=== PATIENT | female | born 1950 | race Caucasian/White ===

== ENCOUNTER 2018-01-10 08:01 | Emergency (ER) | payer OTHER ==
[~2018-01-10] VITALS: Ht 152.4 cm; Wt 54.4 kg
[~2018-01-10 08:01] MED LIST: GLIPIZIDE10 MG; METFORMIN HCL1000 MG; METFORMIN HCL500 MG; MILLIPRED DP5 MG PO; NABUMETONE750 MG PO
[2018-01-10] MEDS ORDERED: COZAAR50 MG (08:10)
[2018-01-10] MEDS ORDERED: LIPITOR20 MG (08:10)
[2018-01-10] MEDS ORDERED: AUBAGIO7 MG (08:10)
== END 2018-01-10 10:02 | disposition home or self-care (01) ==
LOC: ER 08:01
DX: J06.9 Acute upper respiratory infection, unspecified (principal); J11.1 Influenza due to unidentified influenza virus with other respiratory manifestations

== ENCOUNTER 2022-02-07 10:15 | Inpatient (IN) | payer OTHER ==
[~2022-02-07] VITALS: Ht 152.4 cm; Wt 43.1 kg
[~2022-02-07 10:15] MED LIST changes: +AUBAGIO7 MG; +COZAAR50 MG; +LIPITOR20 MG
== END 2022-02-28 16:03 | disposition home or self-care (01) | DRG 177 ==
LOC: ER 10:15 → ICU-2 20:19 → MEDJ 20:19 → ICU-2 02-08 00:50 → MEDJ 02-09 10:35
PROVIDERS: ADMIT Specialist; ATTEND Specialist
PROC: BF37YZZ Magnetic Resonance Imaging (MRI) of Pancreas using Other Contrast (ICD-10-PCS; 2022-02-14)
PROC: 4A12X4Z Monitoring of Cardiac Electrical Activity, External Approach (ICD-10-PCS; 2022-02-20)
PROC: 0FC98ZZ Extirpation of Matter from Common Bile Duct, Via Natural or Artificial Opening Endoscopic (ICD-10-PCS; principal; 2022-02-26)
DX: U07.1 COVID-19 (principal); K85.90 Acute pancreatitis without necrosis or infection, unspecified; K80.12 Calculus of gallbladder with acute and chronic cholecystitis without obstruction; N17.8 Other acute kidney failure; Z95.1 Presence of aortocoronary bypass graft; E11.9 Type 2 diabetes mellitus without complications; Z79.4 Long term (current) use of insulin; I10 Essential (primary) hypertension; I48.0 Paroxysmal atrial fibrillation; G35 Multiple sclerosis; Z20.822 Contact with and (suspected) exposure to COVID-19; I25.10 Atherosclerotic heart disease of native coronary artery without angina pectoris
CPT/HCPCS: 74182

== ENCOUNTER 2025-05-03 12:57 | Inpatient (IN) | payer OTHER ==
[~2025-05-03] VITALS: Ht 152.4 cm; Wt 52.2 kg
[~2025-05-03 12:57] MED LIST changes: +ELIQUIS5 MG PO
[2025-05-03] MEDS ORDERED: METOPROLOL SUCC25 MG (13:44)
[2025-05-03] MEDS ORDERED: GLIMEPIRIDE2 M1 (13:44)
[2025-05-03] MEDS ORDERED: ADULT LOW DOSE81 M1 (13:44)
[2025-05-03] MEDS ORDERED: ZESTRIL2.5 MG (13:44)
--- NOTE | 2025-05-03 13:45 | NUR ---
PTE ALERTA Y ORIENTADO X3 REFIERE TENER [facility], MAREOS Y ASTHMA DEDSE EL JUEVES . SE SIMON SV MAS SE UBICA.
[2025-05-03] MEDS ORDERED: METHYLPREDNISOLONE SOD SUCC 125 MG VIAL IV ONE (14:00)
[2025-05-03] MEDS ORDERED: AZITHROMYCIN 500 MG VIAL IV ONE (14:00)
[2025-05-03] MEDS ORDERED: CEFTRIAXONE SODIUM 1,000 MG VIAL IV ONE (14:00)
[2025-05-03] MEDS ORDERED: LEVALBUTEROL HCL 1.25 MG/3 ML SOLUTION IH SCH ×2 (14:00→18:53)
--- NOTE | 2025-05-03 14:49 | NUR ---
SE REALIZA LAB Y SE ADMINISTRA TX KARRIE ORDEN MEDICA BAJO MEDIDAS ASEPTICAS. SE ORIENTA PTE QUIEN REFIERE ENTENDER Y ACEPTAR.
[2025-05-03 14:53] LABS: BASO % 0.4 % (0.1-1.2); EOS # 0.00 (0.04-0.54); EOS % 0.0 % (0.7-7.0); LYMPH # 1.67 (1.18-3.74); LYMPH % 35.7 % (19.3-53.1); MEAN PLATELET VOLUME 10.80 fl (9.4-12.4); MONO # 0.50 (0.24-0.82); MONO % 10.7 % (4.7-12.5); NEUT # 2.48 (1.56-6.13); NEUT % 53.0 % (34.0-71.1); RED CELL DISTRIBUTION WIDTH 13.8 % (11.6-14.4)
[2025-05-03 15:51] LABS: ALT/SGPT 34.0 U/L (12-78); AST/SGOT 42.0 U/L (15-37); BILIRUBIN TOTAL 0.71 mg/dL (0.3-1.2); BUN CREA RATIO 21.0 (7.0-25.0); CREATININE SERUM 1.18 mg/dL (0.55-1.02); GFR 44.77; GLOBULINA 4.1 G/DL (2.4-3.5); GLUCOSE FASTING 126.0 mg/dL (65-100); OSMOLALITY SERUM 295.0 MOSM/KG (275-295)
[2025-05-03 15:59] LABS: COVID-19 AG NEGATIVE (NEGATIVE)
[2025-05-03] MEDS ORDERED: GUAIFEN/DEXTROMETHORPHAN/PE 10 ML BLIST.PACK PO SCH (18:53)
[2025-05-03] MEDS ORDERED: levoFLOXacin IN DEXTROSE 5 % 150 ML IV SCH (18:53)
[2025-05-03] MEDS ORDERED: METHYLPREDNISOLONE SOD SUCC 40 MG VIAL IV SCH (18:53)
[2025-05-03] MEDS ORDERED: IPRATROPIUM BROMIDE 0.5 MG/2.5 ML AMPUL.NEB IH SCH (18:53)
[2025-05-03] MEDS ORDERED: ENALAPRILAT DIHYDRATE 1.25 MG/ML VIAL IV PRN (19:00)
[2025-05-03] MEDS ORDERED: 0.9 % SODIUM CHLORIDE 1,000 ML IV SCH (19:00)
[2025-05-03] MEDS ORDERED: ACETAMINOPHEN 500 MG GEL..CAP PO PRN (19:00)
[2025-05-03 19:18] LABS: ABG PH 7.465 (7.35-7.45); ABG PO2 100.2 mmHg (80-100); BICARBONATE 22.3 mmol/l (23-25)
[2025-05-03 19:19] LABS: o2 21 %
[2025-05-03 20:09] VITALS: BP 160/64; O2SAT 98
[2025-05-03 20:13] LABS: INR 1.0
[2025-05-03 21:37] LABS: URINE APPEARANCE Clear; URINE BILIRRUBIN Negative (NEGATIVE); URINE BLOOD Negative; URINE COLOR Dark Yellow; URINE GLUCOSE Negative (NEGATIVE); URINE KETONE Trace (NEGATIVE); URINE LEUKOCYTE Trace; URINE NITRATE Negative; URINE UROBILINOGEN 1.0 E.U./dl
[2025-05-03 21:40] LABS: URINE BACTERIA 340.7 uL (0.0-1933); URINE EPITHELIAL CELLS 26.5 uL (0.0-38.8); URINE RBC 23.9 uL (0.0-20.8); URINE WBC 13.2 uL (0.0-23.2)
[2025-05-03 21:50] LABS: URINE CAST 0.14 uL (0.0-1.40); URINE PROTEIN 100 (NEGATIVE)
[2025-05-04] MEDS ORDERED: GUAIFEN/DEXTROMETHORPHAN/PE 10 ML BLIST.PACK PO ONE (01:53)
[2025-05-04 03:40] VITALS: BP 138/73; O2SAT 95
[2025-05-04] MEDS ORDERED: INSULIN LISPRO 1,000 UNIT/10 ML UNITS SUBCUTANEO PRN (06:30)
[2025-05-04] MEDS ORDERED: DEXTROSE 50 % IN WATER 0.5 G/ML VIAL IV PRN (06:30)
[2025-05-04 08:42] VITALS: BP 155/77; O2SAT 97
[2025-05-04] MEDS ORDERED: ENOXAPARIN SODIUM 40 MG/0.4 ML SYRINGE SUBCUTANEO SCH (09:00)
[2025-05-04] MEDS ORDERED: METOPROLOL SUCCINATE 25 MG TAB.SR.24H PO SCH (09:00)
[2025-05-04] MEDS ORDERED: INSULIN GLARGINE,HUM.REC.ANLOG 1,000 UNITS/10 ML UNITS SUBCUTANEO SCH (09:00)
[2025-05-04] MEDS ORDERED: ATORVASTATIN CALCIUM 40 MG TABLET PO SCH (09:00)
[2025-05-04] MEDS ORDERED: FAMOTIDINE/PF 20 MG in 0.9 % SODIUM CHLORIDE 8 ML IV PUSH SCH (09:00)
[2025-05-04] MEDS ORDERED: LACTOBACILLUS ACIDOPHILUS 1 CAP CAP PO SCH (17:00)
[2025-05-04 19:46] VITALS: BP 102/50
[2025-05-05 02:29] VITALS: BP 151/76; O2SAT 95
[2025-05-05] MEDS ORDERED: PIPERACILLIN/TAZOBACTAM SODIUM 3.375 GM VIAL IV SCH (06:00)
[2025-05-05 06:48] LABS: BUN CREA RATIO 20.0 (7.0-25.0); CREATININE SERUM 0.89 mg/dL (0.55-1.02); GFR 62.0; GLUCOSE FASTING 191.0 mg/dL (65-100); OSMOLALITY SERUM 290.0 MOSM/KG (275-295)
[2025-05-05 08:33] VITALS: BP 148/76
[2025-05-05] MEDS ORDERED: METHYLPREDNISOLONE SOD SUCC 40 MG VIAL IV SCH (13:00)
[2025-05-05 17:59] VITALS: BP 156/75; O2SAT 97
[2025-05-06 03:01] VITALS: BP 120/69; O2SAT 95
[2025-05-06] MEDS ORDERED: INSULIN LISPRO 1,000 UNIT/10 ML UNITS SUBCUTANEO SCH ×2 (08:00→12:00)
[2025-05-06 08:50] VITALS: BP 105/59
[2025-05-07 01:42] VITALS: BP 121/64; O2SAT 97
[2025-05-07 09:21] VITALS: BP 126/66
[2025-05-07 16:00] VITALS: BP 111/59
[2025-05-08 01:08] VITALS: BP 126/62; O2SAT 99
[2025-05-08] MEDS ORDERED: INSULIN GLARGINE,HUM.REC.ANLOG 1,000 UNITS/10 ML UNITS SUBCUTANEO SCH (09:00)
[2025-05-08 10:11] VITALS: BP 148/78; O2SAT 99
[2025-05-08 18:32] VITALS: BP 125/81; O2SAT 98
[2025-05-09 01:58] VITALS: BP 123/65; O2SAT 100
[2025-05-09 18:05] VITALS: BP 148/73; O2SAT 96
[2025-05-10 01:42] VITALS: BP 110/54; O2SAT 98
[2025-05-10 10:27] VITALS: BP 125/76; O2SAT 98
[2025-05-10] MEDS ORDERED: LACTOBACILLUS ACIDOPHILUS 1 CAP CAP PO SCH (17:00)
[2025-05-10 19:09] VITALS: BP 124/68
[2025-05-10] MEDS ORDERED: PREDNISONE 10 MG TABLET PO SCH (20:52)
[2025-05-10 21:20] VITALS: O2SAT 98
[2025-05-11 00:35] VITALS: O2SAT 99
[2025-05-11 03:28] VITALS: BP 139/72; O2SAT 100
[2025-05-11 04:23] VITALS: O2SAT 94
[2025-05-11 04:27] VITALS: O2SAT 94
[2025-05-11 08:18] VITALS: O2SAT 98
[2025-05-11 09:12] VITALS: BP 116/68; O2SAT 96
[2025-05-11] MEDS ORDERED: INTESTINEX680 M1 PO (13:06)
[2025-05-11] MEDS ORDERED: FLUCONAZOLE100 MG PO (13:06)
== END 2025-05-11 13:27 | disposition home or self-care (01) | DRG 194 ==
LOC: ER 12:57 → SEC-K 19:06 → MEDJ 19:06
PROVIDERS: General Practice; Internal Medicine Endocrinology, Diabetes & Metabolism; Specialist; ADMIT Internal Medicine; ATTEND Internal Medicine
PROC: BW24ZZZ Computerized Tomography (CT Scan) of Chest and Abdomen (ICD-10-PCS; 2025-05-03)
PROC: 3E0F7GC Introduction of Other Therapeutic Substance into Respiratory Tract, Via Natural or Artificial Opening (ICD-10-PCS; 2025-05-03)
PROC: B24BZZZ Ultrasonography of Heart with Aorta (ICD-10-PCS; 2025-05-04)
PROC: 4A12X4Z Monitoring of Cardiac Electrical Activity, External Approach (ICD-10-PCS; principal; 2025-05-08)
DX: J18.9 Pneumonia, unspecified organism (principal); J45.902 Unspecified asthma with status asthmaticus; N17.9 Acute kidney failure, unspecified; J44.9 Chronic obstructive pulmonary disease, unspecified; E78.5 Hyperlipidemia, unspecified; G35 Multiple sclerosis; E11.9 Type 2 diabetes mellitus without complications; Z79.4 Long term (current) use of insulin; E86.0 Dehydration; E11.65 Type 2 diabetes mellitus with hyperglycemia; I27.20 Pulmonary hypertension, unspecified; I25.10 Atherosclerotic heart disease of native coronary artery without angina pectoris; I11.9 Hypertensive heart disease without heart failure; Z95.1 Presence of aortocoronary bypass graft